=== PATIENT | male | born 1955 | race Caucasian/White ===

== ENCOUNTER 2017-07-04 12:40 | Day surgery (SDC) | payer BC ==
[2017-07-04] MEDS ORDERED: Lactated Ringers 1,000 ML IV SCH (13:15)
[2017-07-04] MEDS ORDERED: Sodium Chloride 0.9% 10 ML Syringe FLUSH PRN (13:15)
--- NOTE | 2017-07-04 13:20 | PCM.HPR ---
H & P Addendum review - H & P Addendum Review Date of Original H & P: 07/29/17 Date Reviewed: 07/04/17 Time Reviewed: 13:20 Patient was Examined: No Changes
[2017-07-04] MEDS ORDERED: fentaNYL 100 MCG/2 ML SDV ONE ×2 (13:26→13:37)
[2017-07-04] MEDS ORDERED: Midazolam 1 MG/ML 2 ML SDV ONE ×2 (13:26→13:37)
[2017-07-04] MEDS ORDERED: Propofol 200 MG/20 ML SDV ONE ×2 (13:26→13:37)
[2017-07-04] MEDS ORDERED: Lidocaine 2% 5 ML SDV ONE (13:37)
--- NOTE | 2017-07-04 13:52 | PCM.OPNOTE ---
- General Post-Op/Procedure Note Date of Surgery/Procedure: 07/04/17 Operative Procedure(s): EGD with Bx Findings: Normal Pre Op Diagnosis: GERD Post-Op Diagnosis: Same Anesthesia Technique: MAC Primary Surgeon: Jesus Li Anesthesia Provider: Jolynn Gipson Pathology: Tom Bx's Complications: None Condition: Good
--- NOTE | 2017-07-04 14:35 | OR ---
Date of Procedure: 07/04/2017 PREOPERATIVE DIAGNOSIS: Gastroesophageal reflux disease. POSTOPERATIVE DIAGNOSIS: Normal EGD. PROCEDURE: EGD with biopsy. ANESTHESIA: IV sedation. DESCRIPTION OF PROCEDURE: The patient was brought to the procedure room, where he was placed on his left side and IV sedation administered. Oral bite block was placed and the upper endoscope advanced into the esophagus under direct vision without difficulty. Vocal cords were viewed and were normal. Scope was advanced to the 3rd portion of the duodenum. Duodenum and pylorus were normal. Antrum and body of the stomach are normal. Retroflexion reveals a normal- appearing fundus. No hiatal hernia was present. Squamocolumnar junction appears normal. I do not see any evidence of reflux esophagitis. Because of his history and duration of symptoms, I took 2 biopsies from the distal esophagus and 2 more from the mid esophagus to rule out eosinophilic esophagitis. Air was removed from the stomach and the scope was withdrawn. The patient tolerated the procedure well and returned to recovery in stable condition. I will have the patient followup Jacqueline Laguerre next week for review of the pathology report. I will have him increase his omeprazole to twice daily in the meantime to see if this helps with his symptoms. SANDRO PEDRO MD /[id number]
== END 2017-07-04 15:40 | disposition home or self-care (01) ==
LOC: LL.SDS 12:40
PROVIDERS: ATTEND Surgery
DX: K21.9 Gastro-esophageal reflux disease without esophagitis (principal); E78.2 Mixed hyperlipidemia; I10 Essential (primary) hypertension; Z79.899 Other long term (current) drug therapy; Z88.0 Allergy status to penicillin; Z80.0 Family history of malignant neoplasm of digestive organs
CPT/HCPCS: J2250; J2704; J3010; J7120

== ENCOUNTER 2019-03-19 11:17 | Day surgery (SDC) | payer BC ==
[~2019-03-19 11:17] MED LIST: Midazolam 1 MG/ML 2 ML SDV ONE; Propofol 200 MG/20 ML SDV ONE
[2019-03-19] MEDS ORDERED: Sodium Chloride 0.9% 10 ML Syringe FLUSH PRN (11:30)
[2019-03-19] MEDS: Lactated Ringers 1,000 ML IV SCH (12:11)
[2019-03-19] MEDS ORDERED: Propofol 200 MG/20 ML SDV ONE ×2 (12:34→13:24)
[2019-03-19] MEDS ORDERED: Midazolam 1 MG/ML 2 ML SDV ONE (12:34)
--- NOTE | 2019-03-19 12:38 | PCM.PN ---
- General Info Date of Service: 03/19/19 - Review of Systems Systems Review Comment:: 64-year-old male referred for colonoscopy. It has been over 5 years since his last colonoscopy. He has a family history of colon cancer. He is medically stable to proceed today. His recent history and physical is reviewed and no significant changes are noted. I have discussed the proposed colonoscopy with the patient. He agrees to proceed accepting risks. - Patient Data Vitals - Most Recent: Last Vital Signs Temp 98.1 F 03/19/19 12:00 Pulse 56 L 03/19/19 12:00 Resp 18 03/19/19 12:00 BP 129/74 03/19/19 12:00 Pulse Ox 99 03/19/19 12:00 Weight - Most Recent: 88.451 kg Med Orders - Current: Current Medications Lactated Ringer's (Ringers, Lactated) 1,000 mls @ 125 mls/hr IV ASDIRECTED MARILYN Last Admin: 03/19/19 12:11 Dose: 125 mls/hr Sodium Chloride (Saline Flush) 10 ml FLUSH ASDIRECTED PRN PRN Reason: Keep Vein Open Discontinued Medications Midazolam HCl (Versed 1 Mg/Ml) Confirm Administered Dose 2 mg .ROUTE .STK-MED ONE Stop: 03/19/19 07:53 Propofol (Diprivan 20 Ml) Confirm Administered Dose 200 mg .ROUTE .STK-MED ONE Stop: 03/19/19 07:54 Sepsis Event Note - Focused Exam Vital Signs: Vital Signs Temp Pulse Resp BP Pulse Ox 03/19/19 12:00 98.1 F 56 L 18 129/74 99 Date Exam was Performed: 03/19/19 Time Exam was Performed: 12:36 - Problem List Review Problem List Initiated/Reviewed/Updated: Yes - My Orders Last 24 Hours: My Active Orders 03/19/19 11:30 Patient Status [ADT] Routine Peripheral IV Care [RC] . DIRECTED Verify Patient Consent Obtain [RC] ASDIRECTED Lactated Ringers [Ringers, Lactated] 1,000 ml IV ASDIRECTED Sodium Chloride 0.9% [Saline Flush] 10 ml FLUSH ASDIRECTED PRN Peripheral IV Insertion Adult [OM.PC] Routine - Assessment Assessment:: family history of colon cancer - Plan Plan:: colonoscopy
--- NOTE | 2019-03-19 13:15 | PCM.OPNOTE ---
- General Post-Op/Procedure Note Date of Surgery/Procedure: 03/19/19 Operative Procedure(s): colonoscopy with polypectomy Findings: 2 small polyps Colon otherwise normal Pre Op Diagnosis: family history of colon cancer Post-Op Diagnosis: colon polyps Anesthesia Technique: MAC Primary Surgeon: Hussein Hou Pathology: Colon Polyps EBL in mLs: 0 Complications: None Condition: Good
--- NOTE | 2019-03-19 16:33 | OR ---
Date of Procedure: 03/19/2019 PREOPERATIVE DIAGNOSIS: Family history of colon cancer. POSTOPERATIVE DIAGNOSIS: Colon polyps. OPERATIONS PERFORMED: Colonoscopy with polypectomy. INDICATIONS FOR SURGERY: This 64-year-old male seen today for a colonoscopy. He has a known family history of colon cancer. FINDINGS: Two polyps were noted on today's exam. One was in the rectum 8 cm from the anal verge. This is a 7-mm semi-pedunculated polyp. The other polyp is in the distal transverse colon. It is also a sessile polyp, 6 mm in size. The colon otherwise appears normal. DESCRIPTION OF PROCEDURE: The patient was taken to the operating room. He was given intravenous sedation, and with him in the left lateral decubitus position, digital rectal exam was performed showing no rectal masses. The Olympus colonoscope was inserted into the rectum. Retroflexed examination of the rectal canal was performed. The rectal polyp was identified and it was removed with a cautery snare and retrieved. The scope was then carefully advanced under direct visualization through the entire length of the colon until the cecum was reached. Cecal acquisition was confirmed by noting the normal internal cecal anatomy including the appendiceal orifice and ileocecal valve. The light was also noted to transilluminate the abdominal wall in the right lower quadrant. After examining the cecum, the scope was slowly withdrawn sequentially re- examining the colonic segments. In the transverse colon, the other polyp was identified. It was removed with a cautery snare and retrieved. Examination was then completed, and with no sign of any complication, the scope was removed, and the patient was taken from the operating room in satisfactory condition. ESTIMATED BLOOD LOSS: 0. COMPLICATIONS: None. PROGNOSIS: Good. SANDRO Hou MD /[id number]
== END 2019-03-19 14:20 | disposition home or self-care (01) ==
LOC: LL.SDS 11:17
PROVIDERS: ATTEND Surgery
DX: Z12.11 Encounter for screening for malignant neoplasm of colon (principal); D12.8 Benign neoplasm of rectum; E78.2 Mixed hyperlipidemia; K21.9 Gastro-esophageal reflux disease without esophagitis; D48.5 Neoplasm of uncertain behavior of skin; E66.9 Obesity, unspecified; Z68.30 Body mass index [BMI] 30.0-30.9, adult; Z87.891 Personal history of nicotine dependence; Z79.899 Other long term (current) drug therapy; Z80.0 Family history of malignant neoplasm of digestive organs; Z88.1 Allergy status to other antibiotic agents
CPT/HCPCS: J2250; J2704; J7120

== ENCOUNTER 2022-06-14 10:56 | Day surgery (SDC) | payer MEDICARE, OTHER ==
[~2022-06-14 10:56] MED LIST changes: -Midazolam 1 MG/ML 2 ML SDV ONE
[2022-06-14] MEDS ORDERED: Lactated Ringers 1,000 ML IV SCH (11:30)
[2022-06-14] MEDS ORDERED: Sodium Chloride 0.9% 10 ML Syringe FLUSH PRN (11:30)
[2022-06-14] MEDS ORDERED: Propofol 200 MG/20 ML SDV ONE (13:28)
== END 2022-06-14 14:15 | disposition home or self-care (01) ==
LOC: LL.SDS 10:56
PROVIDERS: ATTEND Surgery
DX: Z12.11 Encounter for screening for malignant neoplasm of colon (principal); E78.2 Mixed hyperlipidemia; E66.9 Obesity, unspecified; K21.9 Gastro-esophageal reflux disease without esophagitis; C61 Malignant neoplasm of prostate; I10 Essential (primary) hypertension; Z86.010 Personal history of colon polyps; Z79.899 Other long term (current) drug therapy; Z87.891 Personal history of nicotine dependence; Z98.890 Other specified postprocedural states; Z88.0 Allergy status to penicillin; Z68.30 Body mass index [BMI] 30.0-30.9, adult
CPT/HCPCS: J2704; J7120